=== PATIENT | male | born 1995 | race Caucasian/White ===

== ENCOUNTER 2020-07-30 06:40 | Emergency (ER) | payer SELFPAY ==
[2020-07-30 06:46] VITALS: BP 125/74; PULSE 76; RESP 16; TEMP 36.7; O2SAT 97; BMI 37.6
--- NOTE | 2020-07-30 07:27 | ECG_ITS ---
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 Measurements Intervals [place] Rate: 63 P: 25 CO: 141 QRS: 104 QRSD: 99 T: 23 QT: 378 QTc: 389 Interpretive Statements SINUS RHYTHM WITH SINUS ARRHYTHMIA MARKED RIGHT AXIS DEVIATION [QRS AXIS > 100] Compared to ECG 10/08/2017 21:36:41 Ventricular premature complex(es) no longer present Electronically Signed On 07-30-2020 10:33:58 CDT by Kash Tom M.D. [id number]
--- NOTE | 2020-07-30 07:51 | W.ED.NAVMDI ---
HPI - Nausea/Vomiting/Diarrhea General: Chief complaint: Nausea/Vomiting/Diarrhea Stated complaint: COUGH Time Seen by Provider: 07/30/20 06:55 History of Present Illness: HPI Narrative: 24-year-old male presents emergency room with complaint of epigastric pain and heartburn he has had this for essentially years he has not really been taking anything for it on a regular basis. He did do some Tums type [id number] medications yesterday with no relief. He has had some nausea and vomiting he said he threw up in the dark so he does not know if there is any coffee-ground emesis or hematemesis. He has not had that in the past. He is never had a EGD done. Denies any melena or hematochezia. Pain radiates into his back at times he has a separate issue with some musculoskeletal back pain pain is reproducible at the lower tip of the left shoulder blade with movement and palpation. States that nearly anything he eats or drinks exacerbates the pain. MD elicited complaint: nausea, vomiting and abdominal pain Onset (ago): year(s) Description of vomiting: other (Unknown) Associated nausea: Yes Associated abdominal pain: Yes Location of pain: Epigastric Pain consistency: constant Severity: moderate Quality: cramping and stabbing Exacerbating factors: eating Relieving factors: none Associated symtoms: Reports anorexia and nausea; Denies altered mental status, anxiety, bloating, change in vision, chest pain, cough, diaphoresis, decreased urine output, dizziness, dysuria, epistaxis, fatigue, fecal incontinence, fevers/chills, headache(s), malaise, myalgias, numbness, palpitations, rash, short of breath, syncope, tenesmus, tinnitus or weakness Treatment prior to arrival: other OTC medicine (Generic form of a Tums chewable) Review of Systems Const: Denies: fatigue, malaise or diaphoresis Eyes: Denies: change in vision ENMT: Denies: tinnitus or epistaxis Card: Denies: chest pain, palpitations or syncope Resp: Denies: dyspnea, productive cough or non-productive cough GI: Reports: nausea; Denies: bloating or fecal incontinence : Denies: dysuria Skin/Breast: Denies: rash or pruritus Neuro: Denies: headache(s) or dizziness Psych: Denies: anxiety PFSH ED PFSH: Social History Smoking and tobacco status: current every day smoker Physical Exam Const: COMMON NORMALS: no acute distress EXAM LIMITATIONS: no altered mental status GENERAL APPEARANCE: cooperative and comfortable ORIENTATION/CONSCIOUSNESS: Yes awake, Yes oriented to person, Yes oriented to place and Yes oriented to time HENMT: COMMON NORMALS: normocephalic, atraumatic and hearing grossly normal bilaterally HEAD & SCALP: normocephalic and atraumatic Neck/C-Spine: COMMON NORMALS: no JVD Resp: COMMON NORMALS: normal respiratory effort, No retractions, No use of accessory muscles and clear to auscultation bilaterally AUSCULTATION: clear to auscultation bilaterally Cardio: COMMON NORMALS: no JVD, regular rate, regular rhythm and No murmurs present (Cardio) RATE: regular rate RHYTHM: regular rhythm GI: COMMON NORMALS: Soft to palpation and No hepatosplenomegaly present AUSCULTATION: Yes normoactive bowel sounds PALPATION: Yes Soft to palpation, No Tenderness to palpation present (GI), No Guarding due to palpation present (GI) and Yes No hepatosplenomegaly present Extremity: COMMON NORMALS: normal to inspection, capillary refill normal, no clubbing, cyanosis or edema, no calf tenderness and no pedal edema Neuro: SENSORIUM/ORIENTATION: Yes oriented to person, Yes oriented to place and Yes oriented to time Skin: COMMON NORMALS: no rashes or lesions noted GENERAL SKIN EXAM: no rashes or lesions noted Course Vital Signs: Vital signs: Vital Signs Temperature 98.0 F 07/30/20 06:46 Pulse Rate 70 07/30/20 10:13 Respiratory Rate 18 07/30/20 10:13 Blood Pressure 122/68 07/30/20 10:13 Pulse Oximetry 97 07/30/20 10:13 MDM - Nausea/Vomiting/Diarrhea Lab Data: Labs: Lab Results 07/30/20 07/30/20 07/30/20 Range/Units 07:44 07:44 07:46 WBC 17.7 H (4.0-10.0) 10^3/ uL RBC 6.08 H (4.1-5.3) 10^6/u L Hgb 17.3 H (11.7-16.6) g/dL Hct 53.6 H (42.0-52.0) % MCV 88.2 (80-94) fL MCH 28.5 (28.0-34.0) pg MCHC 32.3 (30.0-36.0) g/dL RDW 12.2 (12.1-15.1) % Plt Count 253 (130-400) 10^3/c mm MPV 10.7 H (7.4-10.4) fL Neut % (Auto) 85.6 % Lymph % (Auto) 7.6 % [place] % (Auto) 5.9 % Eos % (Auto) 0.1 % Baso % (Auto) 0.2 % Neut # (Auto) 15.12 H (1.8-7.7) 10^3/u L Lymph # (Auto) 1.4 (0.8-4.8) 10^3/u L [place] # (Auto) 1.0 H (0.2-0.9) 10^3/u L Eos # (Auto) 0.0 (0.0-0.8) 10^3/u L Baso # (Auto) 0.0 (0.0-0.1) 10^3/u L Nucleated RBC % (a uto) 0 % Nucleated RBCs # 0.0 /100WBC Sodium 137 (136-145) mmol/L Potassium 5.1 (3.5-5.1) mmol/L Chloride 103 (98-107) mmol/L Carbon Dioxide 23 (22-29) mmol/L Anion Gap 16.1 (5-19) BUN 14 (6-20) mg/dL Creatinine 1.0 (0.7-1.2) mg/dL GFR Calculation 93.4 (90-130) mL/min Glucose 119 H (65-115) mg/dL Calculated Osmolal ity 286 (285-295) mOsm/k g Calcium 10.4 (8.5-10.5) mg/dL Total Bilirubin 0.3 (0.15-1.2) mg/dL AST 17 (0-40) U/L ALT 26 (0-41) U/L Alkaline Phosphata se 73 (40-130) IU/L Total Protein 7.3 (6.6-8.7) g/dL Albumin 4.7 (3.5-5.2) g/dL Globulin 2.6 (1.3-4.6) g/dL Urine Color Yellow (Yellow) Urine Appearance Hazy A (CLEAR) Urine pH 7.0 (5-7) Ur Specific Gravit y 1.015 (1.005-1.030) Urine Protein Neg (Negative) Urine Glucose (UA) Norm (Normal) Urine Ketones Negative (Negative) Urine Blood Neg (Negative) Urine Nitrate Negative (Negative) Urine Bilirubin Neg (Negative) Urine Urobilinogen Norm (Negative) mg/dL Ur Leukocyte Ana ase Negative (Negative) Urine RBC None (0-2) /hpf Urine WBC None (0-5) /hpf Ur Squamous Epith Cells 0-4 H (0-5) /hpf Amorphous Sediment 2+ /hpf Urine Bacteria Trace (NONE) /hpf Urine Mucus 1+ /hpf Discharge Plan Discharge Patient Disposition: Home Clinical Impression: Chest pain due to GERD Condition: Stable Prescriptions: New pantoprazole 40 mg tablet,delayed release (DR/EC) 40 mg PO DAILY Qty: 30 RF: 0 No Action sulfamethoxazole-trimethoprim [Bactrim DS] 800-160 mg tablet 1 tab PO BID 7 Days Qty: 14 RF: 0 methylprednisolone [Medrol (Saeed)] 4 mg tablets,dose pack See Rx Instructions PO PER PKG DIR Qty: 21 RF: 0 clotrimazole 1 % cream 1 applic TOPICAL BID 7 Days Qty: 28 RF: 0 [place] 5-325 mg Tablet See Rx Instructions .ROUTE .COMPLEX RF: 0 Discharge Orders: Discharge Order (Routine); Ordered 07/30/20 Ordered By: Jairo Baxter Activity Restrictions/Additional Instructions: Case management will call to get you an appointment with the surgeon for an EGD. Discharge Date/Time: 07/30/20 10:15 Coding Level of Care Code ED Learning Operations Specialist for Chg Fwd Exam Comprehensive
[2020-07-30] MEDS: ondansetron 2 mg/ML SDV 2 mL 4 MG IVP (07:56)
[2020-07-30] MEDS: sodium chloride 0.9% 1,000 ML 999 ML IV (07:57)
[2020-07-30] MEDS: lidocaine 2% viscous 15 ML, aluminum-mag hydrox-simethicon 30 ML, sucralfate oral liq 1 GM PO (07:59)
[2020-07-30 08:04] LABS: Basophils % 0.2 %; Eosinophils % 0.1 %; Hematocrit 53.6 % (42.0-52.0); Hemoglobin 17.3 g/dL (11.7-16.6); Lymphocytes # 1.4 10^3/uL (0.8-4.8); Lymphocytes % 7.6 %; Mean Corpuscular HGB Conc 32.3 g/dL (30.0-36.0); Mean Corpuscular Hemoglobin 28.5 pg (28.0-34.0); Mean Corpuscular Volume 88.2 fL (80-94); Mean Platelet Volume 10.7 fL (7.4-10.4); Monocytes % 5.9 %; Neutrophils # 15.12 10^3/uL (1.8-7.7); Neutrophils % 85.6 %; Nucleated Red Blood Cells % 0 %; Platelet Count 253 10^3/cmm (130-400); Red Blood Count 6.08 10^6/uL (4.1-5.3); Red Cell Distribution Width 12.2 % (12.1-15.1); White Blood Count 17.7 10^3/uL (4.0-10.0)
[2020-07-30 08:13] LABS: Alanine Aminotransferase 26 U/L (0-41); Albumin Level 4.7 g/dL (3.5-5.2); Alkaline Phosphatase 73 IU/L (40-130); Aspartate Amino Transferase 17 U/L (0-40); Blood Urea Nitrogen 14 mg/dL (6-20); Calcium 10.4 mg/dL (8.5-10.5); Carbon Dioxide 23 mmol/L (22-29); Chloride 103 mmol/L (98-107); Globulin 2.6 g/dL (1.3-4.6); Glomerular Filtration Rate 93.4 mL/min (90-130); Glucose 119 mg/dL (65-115); Osmolality Calculated 286 mOsm/kg (285-295); Sodium 137 mmol/L (136-145); Total Bilirubin 0.3 mg/dL (0.15-1.2); Total Protein 7.3 g/dL (6.6-8.7)
[2020-07-30 08:20] LABS: Anion Gap 16.1 (5-19); Potassium 5.1 mmol/L (3.5-5.1)
[2020-07-30 08:23] LABS: Slide Review Slide Review Perform
[2020-07-30 08:33] LABS: Add Urine Microscopic? YES; Bilirubin Urine Neg (Negative); Blood Urine Neg (Negative); Glucose Urine UA Norm (Normal); Ketones Urine Negative (Negative); Leukocyte Esterase Urine Negative (Negative); Nitrate Urine Negative (Negative); Protein Urine Neg (Negative); Specific Gravity, Urine 1.015 (1.005-1.030); Urine Appearance Hazy (CLEAR); Urine Color Yellow (Yellow); Urobilinogen Urine Norm (Negative)
[2020-07-30 08:35] LABS: Squamous Epithelial Cell Urine 0-4 /hpf (0-5)
[2020-07-30 08:36] LABS: Add Urine Culture? No; Amorphous Sediment Urine 2+ /hpf; Bacteria Urine TRACE /hpf; Mucus Urine 1+ /hpf
--- NOTE | 2020-07-30 08:52 | CT_ITS ---
WS: [id number] CT ABDOMEN AND PELVIS WITH CONTRAST HISTORY: Abdominal pain and epigastric pain. TECHNIQUE: Imaging performed of the abdomen and pelvis with IV contrast. Single phase imaging of the abdomen. Coronal and sagittal reformats are submitted. All CT scans at [facility] use at least one of these dose optimization techniques: automated exposure control; mA and/or kV adjustment per patient size (includes targeted exams where dose is matched to clinical indication); or iterativ e reconstruction. IV CONTRAST: Omnipaque 300; 95 mL IV. Oral contrast: No DLP: 1512.93 mGy.cm COMPARISON: None available. Lower thorax: Lung bases are clear. Heart is normal size. No hiatal hernia. Liver/biliary system: Normal size with no intrahepatic dilatation. Gallbladder: Contracted gallbladder. No adjacent inflammation. May be due to nonfasting state. Pancreas: Normal. Spleen: Normal. Adrenal glands: Normal. Right kidney: Normal. Left kidney: Normal. Aorta: Normal. Lymphadenopathy: None. Free fluid: None. GI tract: Unremarkable. Normal appendix. No obstruction. Abdominal wall: Unremarkable abdominal wall. No hernia. Pelvis: Normal. Bones: Unremarkable. CT/CT abdomen pelvis w con* [id number] IMPRESSION: 1. Contracted gallbladder. May be due to nonfasting state. No adjacent inflamm ation. 2. Normal appendix. 3. No ascites or adenopathy.
[2020-07-30] MEDS: iohexol 300 mg/mL 100 mL Btl IV (09:13)
--- NOTE | 2020-07-30 09:20 | PC.NURSE ---
PATIENT RETURNED FROM CT TOLERATED WELL
[2020-07-30 10:13] VITALS: BP 122/68; PULSE 70; RESP 18; O2SAT 97
--- NOTE | 2020-07-30 10:28 | DCPLANNER ---
group sales manager had message to schedule a follow up appointment for patient with general surgery. group sales manager called the [facility], spoke with Lexie, gave clinic patients information. group sales manager was told that patients information would be printed and reviewed. Clinic will call patient with appointment information.
--- NOTE | 2020-08-02 13:53 | DCPLANNER ---
manager paper called [facility] clinic to confirm if an appointment had been scheduled for patient. manager paper was told that clinic attempted to call patient and was unable to reach patient, and that clinic sent patient a letter and is waiting for patient to contact clinic to schedule a follow up appointment.
== END 2020-07-30 10:15 | disposition home or self-care (01) ==
PROVIDERS: Emergency Provider Family Medicine
DX: K21.9 Gastro-esophageal reflux disease without esophagitis (principal); R07.89 Other chest pain; F17.210 Nicotine dependence, cigarettes, uncomplicated
CPT/HCPCS: 12345; 74177; 80053; 81001; 85025; 93005; 96361; 96374; 96375; 99283; J2405; J7030; Q9967

== ENCOUNTER → 2020-08-07 12:41 | Outpatient (BNVA) | payer OTHER, SELFPAY | PROVIDERS: Visit Provider Nurse Practitioner Family | DX: Z11.59 Encounter for screening for other viral diseases (principal) | CPT/HCPCS: 87635 ==

== ENCOUNTER 2020-08-27 11:42 | Inpatient (IN) | payer SELFPAY ==
[2020-08-27 11:45] VITALS: BP 137/99; PULSE 122; RESP 18; TEMP 36.8; O2SAT 96; BMI 38.2
--- NOTE | 2020-08-27 11:54 | ED_ITS ---
HPI - Psych General: Chief Complaint: Psychiatric Symptoms Stated Complaint: SI/insomnia Time Seen by Provider: 08/27/20 11:46 Source: patient and police Mode of arrival: other Limitations: no limitations History of Present Illness: HPI Narrative: 24-year-old male who is brought here by police and is currently under 96-hour hold. Patient has been using methamphetamine and has been having auditory hallucinations states has been having thoughts of hurting people. Patient states he has no one in particular but he just been feeling extremely agitated. Denies any worsening improving factors. Associated symptoms: Reports auditory hallucinations and homicidal ideation; Deny depression Review of Systems Const: Denies: fever(s), chills, body aches or change in appetite Eyes: Denies: blurry vision or eye discomfort ENMT: Denies: throat pain or dental pain Card: Denies: chest pain Resp: Denies: dyspnea GI: Denies: abdominal pain, nausea, vomiting or diarrhea : Denies: dysuria Musc: Denies: neck pain or back pain Skin/Breast: Denies: rash Neuro: Denies: headache(s) Psych: Reports: anxiety, auditory hallucinations and homicidal ideation; Denies: depression Guerrero/Lymph: Denies: easy bruising All/Imm: Denies: urticaria PFSH ED PFSH: Social History Smoking and tobacco status: current every day smoker Physical Exam Const: COMMON NORMALS: no acute distress, patient oriented x3 and healthy appearing HENMT: COMMON NORMALS: normocephalic and atraumatic HEAD & SCALP: normocephalic and atraumatic Eye: COMMON NORMALS: Equal, round and reactive pupils present and EOMs intact bilaterally PUPIL: Yes Equal, round and reactive pupils present Neck/C-Spine: COMMON NORMALS: full ROM and supple Chest: COMMONS NORMALS: normal inspection of the chest and normal palpation of entire chest wall Resp: COMMON NORMALS: normal respiratory effort, No retractions, No use of ac cessory muscles and clear to auscultation bilaterally AUSCULTATION: clear to auscultation bilaterally Cardio: COMMON NORMALS: regular rate, regular rhythm and No murmurs present (Cardio) RATE: regular rate RHYTHM: regular rhythm GI: COMMON NORMALS: Normal to inspection, nondistended, normoactive bowel sounds present, Soft to palpation, non-tender and no masses PALPATION: Yes Soft to palpation Extremity: COMMON NORMALS: normal to inspection and full ROM Neuro: COMMON NORMALS: patient oriented x3, moves all extremities and no focal motor deficits Psych: COMMON NORMALS: Normal thought process present and cooperative ACTIVITY/MOTOR BEHAVIOR: Yes psychomotor agitation SPEECH: Yes rapid THOUGHT PROCESS: Normal thought process present THOUGHT CONTENT: Yes Homicidality present and Yes Hallucination(s) present Skin: COMMON NORMALS: no rashes or lesions noted and no wounds GENERAL SKIN EXAM: no rashes or lesions noted MDM - Psych MDM Narrative: Medical decision making narrative: Patient presents here with homicidal ideations along with psychosis likely methamphetamine induced. Patient was placed under 96-hour hold by police. I spoke to Dr. Martin and patient is medically cleared and will admit the psychiatric unit. Lab Data: Labs: Lab Results 08/27/20 08/27/20 08/27/20 Range/Units 12:08 13:08 13:08 WBC 12.8 H (4.0-10.0) 10^3/ uL RBC 5.72 H (4.1-5.3) 10^6/u L Hgb 16.4 (11.7-16.6) g/dL Hct 50.0 (42.0-52.0) % MCV 87.4 (80-94) fL MCH 28.7 (28.0-34.0) pg MCHC 32.8 (30.0-36.0) g/dL RDW 12.3 (12.1-15.1) % Plt Count 271 (130-400) 10^3/c mm MPV 10.1 (7.4-10.4) fL Neut % (Auto) 78.8 % Lymph % (Auto) 11.7 % [place] % (Auto) 8.9 % Eos % (Auto) 0.1 % Baso % (Auto) 0.3 % Neut # (Auto) 10.12 H (1.8-7.7) 10^3/u L Lymph # (Auto) 1.5 (0.8-4.8) 10^3/u L [place] # (Auto) 1.1 H (0.2-0.9) 10^3/u L Eos # (Auto) 0.0 (0.0-0.8) 10^3/u L Baso # (Auto) 0.0 (0.0-0.1) 10^3/u L Nucleated RBC % (a uto) 0 % Nucleated RBCs # 0.0 /100WBC Sodium 138 (136-145) mmol/L Potassium 3.5 (3.5-5.1) mmol/L Chloride 101 (98-107) mmol/L Carbon Dioxide 22 (22-29) mmol/L Anion Gap 18.5 (5-19) BUN 23 H (6-20) mg/dL Creatinine 1.6 H (0.7-1.2) mg/dL GFR Calculation 54.3 L (90-130) mL/min Glucose 106 (65-115) mg/dL Calculated Osmolal ity 290 (285-295) mOsm/k g Calcium 9.7 (8.5-10.5) mg/dL Total Bilirubin 2.7 H (0.15-1.2) mg/dL AST 45 H (0-40) U/L ALT 48 H (0-41) U/L Alkaline Phosphata se 71 (40-130) IU/L Total Protein 7.3 (6.6-8.7) g/dL Albumin 4.9 (3.5-5.2) g/dL Globulin 2.4 (1.3-4.6) g/dL Salicylates < 0.3 L (3-10) mg/dL Urine Opiates Scre en Negative (Negative) ng/mL Acetaminophen < 5.0 L (10-30) ug/mL Ur Barbiturates Sc reen Negative (Negative) ng/mL Ur Phencyclidine S crn Negative (Negative) ng/mL Ur Amphetamines Sc reen Positive H (Negative) ng/mL U Benzodiazepines Scrn Negative (Negative) ng/mL Urine Cocaine Scre en Negative (Negative) ng/mL U Marijuana (THC) Screen Positive H (Negative) ng/mL Ethyl Alcohol < 10 (0-10) mg/dL Discharge Plan Discharge Patient Disposition: Admitted As Inpatient Clinical Impression: Homicidal ideations Drug-induced psychotic disorder Qualifiers: Complication of substance-induced condition: with hallucinations Qualified Code(s): F19.951 - Other psychoactive substance use, unspecified with psychoactive substance-induced psychotic disorder with hallucinations Condition: Stable Referrals: URGENT CARE CLINIC, [Primary Care Provider] - Coding Level of Care Code ED Business Development Engineer for Chg Fwd Exam Comprehensive
[2020-08-27] MEDS: haloperidol inj 5 mg/mL INJ 1 mL IM (12:00)
[2020-08-27] MEDS: LORazepam 2 mg/mL INJ 1 mL IM (12:01)
[2020-08-27 12:27] LABS: Amphetamines Screen Urine Positive (Negative); Barbiturates Screen Urine Negative (Negative); Benzodiazepines Screen Urine Negative (Negative); Cocaine Screen Urine Negative (Negative); Opiate Screen Urine Negative (Negative); PCP Screen Urine Negative (Negative); THC Screen Urine Positive (Negative)
[2020-08-27 13:13] LABS: Basophils % 0.3 %; Eosinophils % 0.1 %; Hemoglobin 16.4 g/dL (11.7-16.6); Lymphocytes # 1.5 10^3/uL (0.8-4.8); Lymphocytes % 11.7 %; Mean Corpuscular HGB Conc 32.8 g/dL (30.0-36.0); Mean Corpuscular Hemoglobin 28.7 pg (28.0-34.0); Mean Corpuscular Volume 87.4 fL (80-94); Mean Platelet Volume 10.1 fL (7.4-10.4); Monocytes # 1.1 10^3/uL (0.2-0.9); Monocytes % 8.9 %; Neutrophils # 10.12 10^3/uL (1.8-7.7); Neutrophils % 78.8 %; Nucleated Red Blood Cells % 0 %; Platelet Count 271 10^3/cmm (130-400); Red Blood Count 5.72 10^6/uL (4.1-5.3); Red Cell Distribution Width 12.3 % (12.1-15.1); White Blood Count 12.8 10^3/uL (4.0-10.0)
[2020-08-27 13:37] LABS: Alanine Aminotransferase 48 U/L (0-41); Albumin Level 4.9 g/dL (3.5-5.2); Alkaline Phosphatase 71 IU/L (40-130); Anion Gap 18.5 (5-19); Aspartate Amino Transferase 45 U/L (0-40); Blood Urea Nitrogen 23 mg/dL (6-20); Calcium 9.7 mg/dL (8.5-10.5); Carbon Dioxide 22 mmol/L (22-29); Chloride 101 mmol/L (98-107); Globulin 2.4 g/dL (1.3-4.6); Glomerular Filtration Rate 54.3 mL/min (90-130); Glucose 106 mg/dL (65-115); Osmolality Calculated 290 mOsm/kg (285-295); Potassium 3.5 mmol/L (3.5-5.1); Sodium 138 mmol/L (136-145); Total Bilirubin 2.7 mg/dL (0.15-1.2); Total Protein 7.3 g/dL (6.6-8.7)
[2020-08-27 13:41] LABS: Acetaminophen < 5.0 ug/mL (10-30); Alcohol Level < 10 mg/dL (0-10); Salicylate < 0.3 mg/dL (3-10)
[2020-08-27 13:52] VITALS: RESP 16
[2020-08-27 14:17] VITALS: BP 117/73; PULSE 101; RESP 16; O2SAT 98
[2020-08-27 22:00] VITALS: BP 105/71; PULSE 92; RESP 19; TEMP 36.5; O2SAT 100
[2020-08-27] MEDS: trazodone 50 mg Tablet PO (22:10)
[2020-08-27] MEDS: hyDROXYzine 25 mg Capsule 50 MG PO (22:10)
[2020-08-28 06:00] VITALS: BP 120/64; PULSE 61; RESP 17; TEMP 36.6; O2SAT 97
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
[2020-08-28] MEDS: quetiapine 100 mg Tablet PO ×2 (08:51→20:53)
[2020-08-28] MEDS: CLONazepam 1 mg Tablet PO (08:51)
[2020-08-28] MEDS: benztropine 1 mg Tablet PO ×2 (08:52→20:53)
[2020-08-28 14:00] VITALS: BP 97/54; PULSE 103; RESP 20; TEMP 36.3; O2SAT 95
--- NOTE | 2020-08-28 18:04 | PC.RESP ---
Smoking Cessation information sent to patient.
[2020-08-28 19:56] VITALS: BP 105/62; PULSE 98; RESP 17; TEMP 36.8; O2SAT 94
[2020-08-28] MEDS: trazodone 50 mg Tablet PO (20:54)
[2020-08-28] MEDS: hyDROXYzine 25 mg Capsule 50 MG PO (20:54)
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
[2020-08-29 05:38] VITALS: BP 130/80; PULSE 91; RESP 18; TEMP 36.8; O2SAT 96
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
[2020-08-29] MEDS: quetiapine 25 mg Tablet 50 MG PO ×3 (11:03→20:09)
[2020-08-29] MEDS: nicotine 21 mg Patch 1 PATCH TRANSDERMA (11:05)
[2020-08-29 13:50] VITALS: BP 96/57; PULSE 72; RESP 18; TEMP 36.9; O2SAT 98
[2020-08-29 19:44] VITALS: BP 143/96; PULSE 73; RESP 15; TEMP 36.6; O2SAT 100
[2020-08-29] MEDS: benztropine 1 mg Tablet PO (20:08)
[2020-08-29] MEDS: quetiapine 100 mg Tablet 200 MG PO (20:09)
--- NOTE | 2020-08-29 20:42 | NUR.SHIFT ---
Pt stated that he is hearing negative talking voices and that this is not a new experience for him. He often hears negative voices that make demands of him even when he is not high on anything. The voices are commanding him to get up and exercise. calling him fat and lazy if he messes up then they tell him to Kill himself and that he is no good. He is talkative when addressed but withdraws to his room and lays down covered up.
[2020-08-30 06:00] VITALS: BP 123/85; PULSE 103; RESP 17; O2SAT 99
[2020-08-30] MEDS: quetiapine 25 mg Tablet 50 MG PO (07:35)
[2020-08-30 12:57] VITALS: BP 123/85; PULSE 103; RESP 17; O2SAT 99
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
== END 2020-08-30 13:12 | disposition left against medical advice (07) | DRG 894 ==
LOC: ER 13:45 → NP 14:15
PROVIDERS: Emergency Medicine; Admitting Provider Psychiatry & Neurology Psychiatry; Visit Provider Psychiatry & Neurology Psychiatry
DX: F19.951 Other psychoactive substance use, unspecified with psychoactive substance-induced psychotic disorder with hallucinations (principal); Z53.29 Procedure and treatment not carried out because of patient's decision for other reasons; F15.921 Other stimulant use, unspecified with intoxication delirium
CPT/HCPCS: 12345; 36415; 80053; 80306; 80307; 85025; 96372; 99284; J1630; J2060

== ENCOUNTER 2022-07-13 05:26 | Emergency (ER) | payer MEDICAID, SELFPAY ==
[2022-07-13] VITALS (13 sets, daily range): BP systolic 102–157; BP diastolic 47–99; PULSE 71–136; RESP 14–26; TEMP 37.4; O2SAT 97–100; BMI 29.8
--- NOTE | 2022-07-13 05:38 | ECG_ITS ---
[facility] Test Date: 2022-07-13 Pat Name: Roque Ross Department: Room: Gender: Male Oxyacetylene Burner: : 1995 Requested By: Mark Sotomayor Order Number: [id number] Vannessa MD: Ksah Tom M.D. Measurements Intervals [place] Rate: 112 P: 45 SD: 137 QRS: 96 QRSD: 101 T: 18 QT: 322 QTc: 440 Interpretive Statements SINUS TACHYCARDIA BORDERLINE RIGHT AXIS DEVIATION [QRS AXIS > 90] Compared to ECG 07/30/2020 08:35:47 Sinus rhythm no longer present Sinus arrhythmia no longer present Electronically Signed On 07-13-2022 18:09:58 CDT by Kash Tom M.D. [id number]
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
--- NOTE | 2022-07-13 05:42 | PC.NURSE ---
patient appears scared, retracting from things in the room that are not there. states 'i think im hallucinating, i am bad . patient repeatedly hyperventilating, coached in breathing and calmed, patient restless in bed, tearful. beginning to pick at clothes repeatedly. patient able to answer his name, and state situation and place.
[2022-07-13] MEDS: sodium chloride 0.9% 1,000 ML 999 ML IV (05:44)
[2022-07-13] MEDS: haloperidol inj 5 mg/mL INJ 1 mL IVP (05:46)
[2022-07-13] MEDS: midazolam 1 mg/mL INJ 2 mL 2 MG IVP (05:46)
[2022-07-13 05:48] LABS: Basophils # 0.1 10^3/uL (0.0-0.1); Basophils % 0.3 %; Eosinophils # 0.1 10^3/uL (0.0-0.8); Eosinophils % 0.5 %; Hematocrit 48.2 % (42.0-52.0); Hemoglobin 16.3 g/dL (11.7-16.6); Lymphocytes # 2.1 10^3/uL (0.8-4.8); Lymphocytes % 14.2 %; Mean Corpuscular HGB Conc 33.8 g/dL (30.0-36.0); Mean Corpuscular Hemoglobin 28.6 pg (28.0-34.0); Mean Corpuscular Volume 84.7 fl (80-94); Mean Platelet Volume 9.8 fL (7.4-10.4); Monocytes # 1.3 10^3/uL (0.2-0.9); Monocytes % 8.7 %; Neutrophils # 11.16 10^3/uL (1.8-7.7); Nucleated Red Blood Cells % 0 %; Platelet Count 260 10^3/cmm (130-400); Red Blood Count 5.69 10^6/uL (4.1-5.3); Red Cell Distribution Width 11.9 % (12.1-15.1); White Blood Count 14.7 10^3/uL (4.0-10.0)
[2022-07-13 06:05] LABS: Alanine Aminotransferase 20 U/L (0-41); Albumin Level 4.7 g/dL (3.5-5.2); Alkaline Phosphatase 75 U/L (40-130); Anion Gap 19.6 (5-19); Aspartate Amino Transferase 19 U/L (0-40); Blood Urea Nitrogen 23 mg/dL (6-20); Calcium 10.1 mg/dL (8.5-10.5); Carbon Dioxide 23 mmol/L (22-29); Chloride 99 mmol/L (98-107); Globulin 2.9 g/dL (1.3-4.6); Glomerular Filtration Rate 74.4 mL/min (90-130); Glucose 93 mg/dL (65-115); Osmolality Calculated 289 mOsm/kg (285-295); Potassium 3.6 mmol/L (3.5-5.1); Sodium 138 mmol/L (136-145); Total Bilirubin 1.2 mg/dL (0.15-1.2); Total Protein 7.6 g/dL (6.6-8.7)
[2022-07-13 06:10] LABS: Acetaminophen < 5.0 ug/mL (10-30); Alcohol Level < 10 mg/dL (0-10); Salicylate < 0.3 mg/dL (3-10)
--- NOTE | 2022-07-13 07:23 | PC.NURSE ---
WHILE AT BEDSIDE PT IS IN NAD. PT IS RESTING QUIETLY ON LEFT SIDED WITH EYES CLOSED. PT HAS GOOD CHEST RISE AND FALL. CONTINUOUS NIBP AND CM IN PLACE
== END 2022-07-13 09:58 | disposition home or self-care (01) ==
PROVIDERS: Emergency Medicine; Emergency Provider Family Medicine
DX: F15.10 Other stimulant abuse, uncomplicated (principal); R41.82 Altered mental status, unspecified
CPT/HCPCS: 80053; 80307; 85025; 93005; 96361; 96374; 96375; 99284; J1630; J2250; J7030